=== PATIENT | female | born 2005 | race African-American/Black ===

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

== ENCOUNTER 2025-04-27 14:40 | Emergency (ER) | payer OTHER ==
[~2025-04-27] VITALS: Ht 172.7 cm; Wt 95.0 kg
[~2025-04-27 14:40] MED LIST: TOPUD MT
[2025-04-27 15:06] VITALS: TEMP 36.8; O2SAT 100
[2025-04-27] MEDS ORDERED: SULF1TAB48 MT (17:00)
[2025-04-27] MEDS ORDERED: CEPH500T MT (17:00)
[2025-04-27] MEDS: LIDOCAINE HCL 1% 20ML VIAL INFIL ONE (17:04)
[2025-04-27 17:19] VITALS: BP 131/73; PULSE 95; RESP 16; O2SAT 100
== END 2025-04-27 17:26 | disposition home or self-care (01) ==
LOC: ER 14:40
DX: L05.01 Pilonidal cyst with abscess (principal); Z79.899 Other long term (current) drug therapy
CPT/HCPCS: 10080; 99283; J2003; Z7610 ×3